=== PATIENT | male | born 1965 | race Caucasian/White ===

== ENCOUNTER 2018-06-10 14:10 | Inpatient (IN) | payer OTHER ==
[2018-06-10 17:23] LABS: ADD MAN DIFF? NO
[2018-06-10 17:28] LABS: BASOPHILS % 0.5 % (0.0-2.0); EOSINOPHILS # 0.9 10^3/ul (0.0-0.5); EOSINOPHILS % 10.2 % (0.0-7.0); HEMATOCRIT 40.4 % (42.0-52.0); HEMOGLOBIN 13.8 g/dl (14.0-18.0); LYMPHOCYTES # 2.5 10^3/ul (0.8-2.9); LYMPHOCYTES % 29.3 % (15.0-51.0); MEAN CORPUSCULAR HEMOGLOBIN 30.9 pg (29.0-33.0); MEAN CORPUSCULAR HGB CONC 34.2 g/dl (32.0-37.0); MEAN CORPUSCULAR VOLUME 90.4 fl (82.0-101.0); MONOCYTE # 0.4 10^3/ul (0.3-0.9); NEUTROPHIL # 4.7 10^3/ul (1.6-7.5); NEUTROPHILS % 54.6 % (39.0-77.0); PLATELET COUNT 340 10^3/UL (140-415); RED BLOOD COUNT 4.47 10^6/ul (4.70-6.10); RED CELL DISTRIBUTION WIDTH 13.3 % (11.5-14.5)
[2018-06-10 17:28] LABS: WHITE BLOOD COUNT 8.6 10^3/ul (4.8-10.8)
[2018-06-10] MEDS: PIPER-TAZO 3.375 GM IV (PMX) 100 ML IVPB (17:29)
[2018-06-10] MEDS: SODIUM CHLORIDE 0.9% 1L BAG IV* (17:29)
[2018-06-10 17:48] LABS: INR 0.82; PROTIME 11.4 Sec (11.9-14.9); PT RATIO 0.9
[2018-06-10 17:49] LABS: PARTIAL THROMBOPLASTIN TIME 32.6 Sec (23.0-35.0)
[2018-06-10] MEDS ORDERED: ONDANSETRON 4 MG INJ IV ×2 (18:00→19:30)
[2018-06-10] MEDS ORDERED: ACETAMINOPHEN 325 MG TAB PO (18:00)
[2018-06-10 18:03] LABS: ALANINE AMINOTRANSFERASE 30 IU/L (13-69); ALBUMIN 4.3 g/dl (3.3-4.9); ALBUMIN/GLOBULIN RATIO 1.43; ALKALINE PHOSPHATASE 90 IU/L (42-121); ANION GAP 10 (5-13); ASPARTATE AMINO TRANSFERASE 25 IU/L (15-46); BILIRUBIN,INDIRECT 0.6 mg/dl (0-1.1); BILIRUBIN,TOTAL 0.6 mg/dl (0.2-1.3); BLOOD UREA NITROGEN 15 mg/dl (7-20); CALCIUM 10.3 mg/dl (8.4-10.2); CARBON DIOXIDE 31 mmol/L (21-31); CHLORIDE 101 mmol/L (97-110); Estimated GFR 50 mL/min (>60); GLUCOSE 111 mg/dl (70-220); POTASSIUM 4.3 mmol/L (3.5-5.1); SODIUM 142 mmol/L (135-144); TOTAL PROTEIN 7.3 g/dl (6.1-8.1)
[2018-06-10 18:43] LABS: C-REACTIVE PROTEIN < 0.5 mg/dl (0.0-0.9)
[2018-06-10] MEDS: VANCOMYCIN 1 GM (PMX) 250 ML IVPB (18:52)
[2018-06-10] MEDS ORDERED: HYDROCODONE/APAP (5/325) TAB PO (19:30)
[2018-06-10] MEDS ORDERED: NACL 0.9% 3 ML SYG IV (19:30)
[2018-06-10] MEDS ORDERED: DOCUSATE SODIUM 100 MG CAP PO (19:30)
[2018-06-10] MEDS ORDERED: ZOLPIDEM 5 MG TAB PO (19:30)
[2018-06-10] MEDS: INSULIN GLARGINE [LANTus] (100 UNITS/ML) SYG SC (20:00)
[2018-06-10] MEDS: INSULIN ASPART [NOVOLOG] 3 ML PEN SC (21:00)
[2018-06-10] MEDS ORDERED: GLUCOSE GEL 15 GRAM TUBE PO ×2 (21:00)
[2018-06-10] MEDS ORDERED: GLUCAGON 1 MG INJ IM (21:00)
[2018-06-10] MEDS ORDERED: GLUCOSE GEL 15 GRAM TUBE BUCCAL (21:00)
[2018-06-10] MEDS ORDERED: DEXTROSE 50% 50 ML SYRINGE IV ×2 (21:00)
[2018-06-10] MEDS: CEFTRIAXONE 1 GM/50 ML (PMX) 50 ML IVPB (22:01)
[2018-06-10] MEDS: ACETAMINOPHEN 325 MG TAB PO (23:15)
[2018-06-11] MEDS: ACCU-CHEK XX (01:05)
[2018-06-11 05:38] LABS: ADD MAN DIFF? NO; BASOPHIL # 0.1 10^3/ul (0.0-0.1); BASOPHILS % 0.6 % (0.0-2.0); EOSINOPHILS # 0.8 10^3/ul (0.0-0.5); EOSINOPHILS % 9.7 % (0.0-7.0); HEMATOCRIT 36.9 % (42.0-52.0); HEMOGLOBIN 12.5 g/dl (14.0-18.0); LYMPHOCYTES # 1.8 10^3/ul (0.8-2.9); LYMPHOCYTES % 23.4 % (15.0-51.0); MEAN CORPUSCULAR HEMOGLOBIN 30.3 pg (29.0-33.0); MEAN CORPUSCULAR HGB CONC 33.9 g/dl (32.0-37.0); MEAN CORPUSCULAR VOLUME 89.6 fl (82.0-101.0); MEAN PLATELET VOLUME 9.1 fl (7.4-10.4); MONOCYTE # 0.5 10^3/ul (0.3-0.9); MONOCYTES % 5.9 % (0.0-11.0); NEUTROPHIL # 4.7 10^3/ul (1.6-7.5); NEUTROPHILS % 60.1 % (39.0-77.0); PLATELET COUNT 284 10^3/UL (140-415); RED BLOOD COUNT 4.12 10^6/ul (4.70-6.10); RED CELL DISTRIBUTION WIDTH 13.2 % (11.5-14.5)
[2018-06-11 05:38] LABS: WHITE BLOOD COUNT 7.8 10^3/ul (4.8-10.8)
[2018-06-11 06:01] LABS: ANION GAP 6 (5-13); BLOOD UREA NITROGEN 12 mg/dl (7-20); CALCIUM 9.1 mg/dl (8.4-10.2); CARBON DIOXIDE 28 mmol/L (21-31); CHLORIDE 105 mmol/L (97-110); CREATININE 1.17 mg/dl (0.61-1.24); Estimated GFR > 60 mL/min (>60); GLUCOSE 100 mg/dl (70-220); MAGNESIUM 1.9 mg/dl (1.7-2.5); PHOSPHORUS 3.7 mg/dl (2.5-4.9); POTASSIUM 3.6 mmol/L (3.5-5.1); SODIUM 139 mmol/L (135-144)
[2018-06-11] MEDS: INSULIN ASPART [NOVOLOG] 3 ML PEN SC ×7 (08:00→21:00)
[2018-06-11] MEDS: LISINOPRIL 20 MG TAB PO (08:52)
[2018-06-11] MEDS: CHOLECALCIFEROL 1,000 UNIT TAB PO (13:03)
[2018-06-11] MEDS: morphine 2 MG INJ IV (13:26)
[2018-06-11 16:07] LABS: C-REACTIVE PROTEIN < 0.5 mg/dl (0.0-0.9)
[2018-06-11 16:28] LABS: ERYTHROCYTE SEDIMENTATION RATE 8 mm/Hr (0-20)
[2018-06-11] MEDS ORDERED: VANCOMYCIN IV PER PHARMACY XX (16:30)
[2018-06-11] MEDS: VANCOMYCIN HCL 1.5 GM in SOD CHLORIDE 0.9% 250 ML IVPB (17:40)
[2018-06-11] MEDS: CEFTRIAXONE 1 GM/50 ML (PMX) 50 ML IVPB (21:10)
[2018-06-11] MEDS: INSULIN GLARGINE [LANTus] (100 UNITS/ML) SYG SC (21:20)
[2018-06-12] MEDS: ACCU-CHEK XX (02:00)
[2018-06-12] MEDS: VANCOMYCIN HCL 1.5 GM in SOD CHLORIDE 0.9% 250 ML IVPB (06:16)
[2018-06-12 06:38] LABS: CREATININE 1.35 mg/dl (0.61-1.24)
[2018-06-12 06:38] LABS: BLOOD UREA NITROGEN 14 mg/dl (7-20)
[2018-06-12] MEDS: INSULIN ASPART [NOVOLOG] 3 ML PEN SC ×4 (09:14→13:06)
[2018-06-12] MEDS: CHOLECALCIFEROL 1,000 UNIT TAB PO (09:45)
[2018-06-12] MEDS: LISINOPRIL 20 MG TAB PO (09:46)
[2018-06-12] MEDS ORDERED: LIDOCAINE 1% (MPF) 5 ML VIAL SC (12:30)
[2018-06-12] MEDS: SODIUM HYPOCHLORITE (1/40) 1 APPLIC BTL IRR (14:36)
[2018-06-12] MEDS ORDERED: VANCOMYCIN HCL 1.5 GM in SOD CHLORIDE 0.9% 250 ML IVPB (21:00)
== END 2018-06-12 15:25 | disposition home or self-care (01) | DRG 623 ==
LOC: E/R 14:10 → 2NE 17:52
PROC: 0JBR0ZZ Excision of Left Foot Subcutaneous Tissue and Fascia, Open Approach (ICD-10-PCS; principal; 2018-06-11)
DX: E10.621 Type 1 diabetes mellitus with foot ulcer (principal); M86.172 Other acute osteomyelitis, left ankle and foot; E10.42 Type 1 diabetes mellitus with diabetic polyneuropathy; E10.51 Type 1 diabetes mellitus with diabetic peripheral angiopathy without gangrene; F15.90 Other stimulant use, unspecified, uncomplicated; B35.1 Tinea unguium; E10.69 Type 1 diabetes mellitus with other specified complication; B95.8 Unspecified staphylococcus as the cause of diseases classified elsewhere; F17.200 Nicotine dependence, unspecified, uncomplicated; L97.529 Non-pressure chronic ulcer of other part of left foot with unspecified severity; Z79.4 Long term (current) use of insulin; Z89.422 Acquired absence of other left toe(s); Z91.19 Patient's noncompliance with other medical treatment and regimen
CPT/HCPCS: 36415; 73630-LT; 80048; 80053; 82565; 82962; 83036; 83605; 83735; 84100; 84520; 85025; 85610; 85651; 85730; 86140; 87040; 87070; 90686; 93005; 93922; 96374; 99285-25